=== PATIENT | male | born 1995 | race African-American/Black ===

== ENCOUNTER 2016-11-01 08:14 | Emergency (ER) | payer SELFPAY ==
[~2016-11-01] VITALS: Ht 188 cm; Wt 88.0 kg
[2016-11-01 08:15] VITALS: BP 160/100; PULSE 68; RESP 18; TEMP 97.5; O2SAT 99
--- NOTE | 2016-11-01 08:28 | PD ---
HPI Chief Complaint: Abdominal Pain Time Seen by Provider: 08:27 Travel History International Travel<30 days: No Contact w/Intl Traveler<30days: No Traveled to known affect area: No History of Present Illness HPI 20-year-old male came to the emergency room with history of diarrhea since past 2 days. Patient says he ate a burger last Tuesday after which he started having diarrhea. Now he is stooling every 2-3 hours. He is getting soft stool with no blood. It's moderate quantity. No history of vomiting. He has been eating and drinking okay. The diarrhea is keeping him away from his job and hence he had to come in to be checked out. He has some abdominal pressure but no severe pain. Vital signs are otherwise stable. He is a healthy person. His roommate ate the same burger from the same place and he's having some similar symptoms as well. [facility] Past Medical History Narrative Medical List of his past medical history is reviewed from the nursing note. Social History Tobacco Use: Yes Allergies-Medications (Allergen,Severity, Reaction): Coded Allergies: No Known Allergies (Unverified , 11/01/16) Comments No known drug allergies. Reported Meds & Prescriptions Reported Meds & Active Scripts Active No Active Prescriptions or Reported Medications Narrative Medication List of his home medications reviewed from the nursing note. Review of Systems Except as stated in HPI: all other systems reviewed are Neg Physical Exam Narrative GENERAL: Awake, alert, no obvious distress SKIN: Warm and dry. HEAD: Atraumatic. Normocephalic. EYES: Pupils equal and round. No scleral icterus. No injection or drainage. ENT: No nasal bleeding or discharge. Mucous membranes pink and moist. NECK: Trachea midline. No JVD. CARDIOVASCULAR: Regular rate and rhythm. No murmur appreciated. RESPIRATORY: No accessory muscle use. Clear to auscultation. Breath sounds equal bilaterally. GASTROINTESTINAL: Abdomen soft, non-tender, nondistended. Hepatic and splenic margins not palpable. MUSCULOSKELETAL: No obvious deformities. No clubbing. No cyanosis. No edema. NEUROLOGICAL: Awake and alert. No obvious cranial nerve deficits. Motor grossly within normal limits. Normal speech. PSYCHIATRIC: Appropriate mood and affect; insight and judgment normal. Data Data Last Documented VS Vital Signs Date Time Temp Pulse Resp B/P Pulse Ox O2 Delivery O2 Flow Rate FiO2 11/01/16 11:27 97.5 71 18 137/91 99 Room Air Orders C Diff Toxin Pcr (11/01/16 08:32) Labs Laboratory Tests Test 11/01/16 08:54 Stool C. difficile Toxin (PCR) NEGATIVE Stl C. difficile Toxin PRESUMPTIVE Epiderm 027 NEGATIVE MDM Medical Decision Making Medical Screen Exam Complete: Yes Emergency Medical Condition: Yes Medical Record Reviewed: Yes Differential Diagnosis Acute enteritis, C. difficile colitis Narrative Course 8:52 AM awaiting for stool sample in order to test for culture and C. difficile. 10:45 AM the stool for C. difficile is still pending. Lab blood is noted that it's another 2 and half hours out. At this point I decided to discharge the patient home. He will be called and notified if the C. difficile is positive. Procedures EKG Prior to Arrival: No Diagnosis Primary Impression: Enteritis Referrals: Primary Care Physician 2 days Departure Forms: Tests/Procedures, Work Release Enter return to work date: Nov 03, 2016 Additional Instructions: Please return to the ER if the condition worsens or any other new emergent concerns. Otherwise follow-up with your primary care in couple days. If there is stool test result comes back positive we will call you at your provided phone number and notify use so that a treatment be started. Till then BU are considered contagious. Wash her hands with soap after every bowel movement. Med/Other Pt SpecificInfo: No Change to Meds Scripts No Active Prescriptions or Reported Meds Disposition: 01 DISCHARGE HOME Condition: Stable Wero Castillo MD Nov 01, 2016 08:28
[2016-11-01 11:23] LABS: C. DIFF EPI 027 PRESUMPTIVE NEGATIVE (NEGATIVE); C. DIFF TOXIN PCR NEGATIVE (NEGATIVE)
[2016-11-01 11:27] VITALS: BP 137/91; PULSE 71; RESP 18; TEMP 97.5; O2SAT 99
== END 2016-11-01 11:28 | disposition home or self-care (01) ==
LOC: NEPE 08:14
DX: K52.9 Noninfective gastroenteritis and colitis, unspecified (principal); Z72.0 Tobacco use
CPT/HCPCS: 87493; 99284